=== PATIENT | male | born 1955 | race American Indian/Alaskan Native ===

== ENCOUNTER 2016-03-20 11:09 | Emergency (ER) | payer BC ==
--- NOTE | 2016-03-20 11:43 | Emergency Department Report ---
Chief Complaint: Abdominal Pain Stated Complaint: ABD PAIN Time Seen by Provider: 03/20/16 11:41 - HPI History of Present Illness: 60 y/o male complain of abdominal pain x 1 day .pt state vomiting this am x 2 .pt state he unable to keep any food on stomach . - ROS Review of Systems: per HPI - Exam Vital Signs: Vital Signs 03/20/16 11:16 Temperature 98.9 F Pulse Rate 105 H Respiratory 18 Rate Blood Pressure 151/99 O2 Sat by Pulse 98 Oximetry Physical Exam: GENERAL: The patient is well-developed and well-nourished. Patient is in NAD. HENT: Normocephalic. Atraumatic. Patient has moist mucous membranes. Throat: No erythema, swelling or exudates. Ears:Tympanic membranes pearly leahy ,intact , and free of exudate and erythema . EYES: Extraocular motions are intact, PERRL NECK: Supple. No meningitic signs are noted. There is no adenopathy noted. CHEST/LUNGS: Clear to auscultation bilaterally. No wheezing, rales or rhonchi noted. There is no respiratory distress noted. HEART/CARDIOVASCULAR: Regular rate and rhythm. Normal S1 S2. No murmurs, rubs , clicks, or gallops. ABDOMEN: Abdomen is soft, nontender.. Bowel sounds normoactive. There is no abdominal distention. Negative rebound tenderness. : Deferred. SKIN: There is no rash. There is no edema. There is no diaphoresis.Normal skin turgor NEURO: The patient is A&Ox3. The patient has no focal neurologic deficits. MUSCULOSKELETAL: There is no tenderness or deformity. There is no limitation range of motion. posture erect.Spine aligned,no deformities. PSYCH: Pt has appropriate mood and affect. MSE screening note: Focused history and physical exam performed. Due to findings the following was ordered: ED Disposition for MSE Condition: Stable
[2016-03-20 12:35] LABS: Hematocrit 47.1 % (35.5-45.6); Hemoglobin 15.6 gm/dl (11.8-15.2); Mean Corpuscular HGB Conc 33 % (32-34); Mean Corpuscular Hemoglobin 31 pg (28-32); Mean Corpuscular Volume 94 fl (84-94); Platelet Count 273 K/mm3 (140-440); Red Cell Distribution Width 13.8 % (13.2-15.2); White Blood Count 13.2 K/mm3 (4.5-11.0)
[2016-03-20 12:41] LABS: INR 1.05 (0.87-1.13)
[2016-03-20 12:51] LABS: Amylase 33 units/L (27-131); Anion Gap 20 mmol/L; BUN/Creatinine Ratio 11.11; Blood Urea Nitrogen 10 mg/dL (9-20); Calcium 9.4 mg/dL (8.4-10.2); Carbon Dioxide 23 mmol/L (22-30); Chloride 98.2 mmol/L (98-107); Glucose 109 mg/dL (75-100); Lipase 13 units/L (13-60); Potassium 4.1 mmol/L (3.6-5.0); Sodium 137 mmol/L (137-145)
[2016-03-20 13:24] LABS: Basophils % (Manual) 0 % (0.0-1.8); Blastocytes % (Manual) 0 %; Diff Status Complete; Eosinophils % (Manual) 0 % (0.0-4.3); Large Platelets Few; Stomatocytes 1+
[2016-03-20] MEDS ORDERED: NACL ONE (13:42)
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
[2016-03-20 16:57] VITALS: BP 139/86
== END 2016-03-20 16:56 | disposition home or self-care (01) ==
LOC: ED 11:09
DX: K52.9 Noninfective gastroenteritis and colitis, unspecified (principal); F17.200 Nicotine dependence, unspecified, uncomplicated; Z98.890 Other specified postprocedural states
CPT/HCPCS: 36415; 74177; 80048; 82150; 83690; 85007; 85025; 85610; 99284; Q9967

== ENCOUNTER 2017-08-24 11:49 | Emergency (ER) | payer BC ==
[2017-08-24 11:56] VITALS: BP 157/91
--- NOTE | 2017-08-24 12:25 | XRay Report ---
LEFT FOOT, 2 views: History: Swelling and pain. Subtle nondisplaced fracture of the proximal phalanx of the third toe is identified. No calcified callus. The remaining bony structures and joint spaces are unremarkable. IMPRESSION: Fracture, proximal phalanx, third toe.
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
== END 2017-08-24 13:32 | disposition home or self-care (01) ==
LOC: ED 11:49
DX: S92.535A Nondisplaced fracture of distal phalanx of left lesser toe(s), initial encounter for closed fracture (principal); K56.690 Other partial intestinal obstruction; Z98.890 Other specified postprocedural states; Z79.899 Other long term (current) drug therapy; W22.03XA Walked into furniture, initial encounter; Y93.01 Activity, walking, marching and hiking; Y99.8 Other external cause status; Y92.019 Unspecified place in single-family (private) house as the place of occurrence of the external cause
CPT/HCPCS: 99283